=== PATIENT | female | born 1995 | race Caucasian/White ===

== ENCOUNTER 2016-12-12 01:12 | Emergency (ER) | payer OTHER ==
[2016-12-12 01:27] VITALS: TEMP 36.4
[2016-12-12] MEDS ORDERED: BCPILLS PO (01:41)
--- NOTE | 2016-12-12 01:47 | EMERGENCY ROOM VISIT NOTE ---
History Report prepared by Micky: Gisselle Hill Under the Supervision of: Dr. Mell Peraza D.O. First contact with patient: 01:16 Chief Complaint: ALCOHOL OVERDOSE Stated Complaint: ALCOHOL OVERDOSE History of Present Illness The patient is a 21 year old female who presents to the Emergency Room with complaints of an alcohol overdose that occurred prior to arrival. Per the patient's boyfriend, he was with the patient downtown drinking this evening. He states that the patient drank too much and he was walking the patient home when she suddenly had an asthma attack. The patient's boyfriend states that the patient did not have her albuterol inhaler on hand, so he called 911 for assistance. The patient notes a history of asthma. Nursing staff the patient vomited upon arrival to the emergency department. The patient denies any fall or trauma. 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 The history is limited secondary to intoxication. Source of History: patient, spouse/significant other History Limited By: intoxication Onset: prior to arrival Position: other (global) Quality: other (alcohol overdose) Associated Symptoms: + vomiting Note: Associated Symptoms: asthma attack Review of Systems HPI is limited secondary to intoxication. Past Medical & Surgical Medical Problems: (1) Asthma Family History Unobtainable secondary to intoxication Social History Alcohol Use: heavy Marital Status: in relationship Occupation Status: employed Current/Historical Medications Scheduled Control Pills ( Control Pills), 1 TAB PO DAILY Allergies Coded Allergies: Parsley (Verified Allergy, Mild, UNKNOWN, 12/12/16) Clindamycin (Verified Allergy, Unknown, UNKNOWN, 12/12/16) Physical Exam Vital Signs Date Time Temp Pulse Resp B/P Pulse Ox O2 Delivery O2 Flow Rate FiO2 12/12/16 07:00 90 16 81/49 97 Room Air 12/12/16 05:30 89 14 95 12/12/16 05:28 100/58 12/12/16 05:19 91 12/12/16 05:00 90 13 96 12/12/16 04:58 81/53 12/12/16 04:30 91 14 95 12/12/16 04:28 90/56 12/12/16 04:03 74 16 100/57 96 Room Air 12/12/16 04:00 82 13 96 12/12/16 03:34 105 16 93/51 98 Room Air 12/12/16 01:27 36.4 105 22 134/76 94 Room Air 12/12/16 01:22 103 Physical Exam General: Crying with vomit all through her hair. HEENT: Head - normocephalic and atraumatic Pupils are equal, round, and reactive to light. Extraocular eye muscles are intact, and sclera are anicteric. Nose - moist nasal mucosa without discharge. Mouth - moist buccal mucosa. Oropharynx is nonerythematous and there is no tonsillar exudate or edema noted. Neck: Supple; no JVD, nuchal rigidity, cervical lymphadenopathy. Heart: Regular rate and rhythm. There is a normal S1 and S2 with no murmurs, clicks, or gallops appreciated. Lungs: Clear to auscultation bilaterally with no wheezes, rales, or rhonchi. Abdomen: Soft, completely nontender, nondistended, with good bowel sounds. There are no palpable pulsatile masses or hepatosplenomegaly. There is no guarding, rigidity, or rebound noted. Extremities: No evidence of cyanosis, clubbing, or edema. There are easily palpable peripheral pulses. Skin: warm and dry with good turgor and no rashes. Medical Decision & Procedures Laboratory Results 12/12/16 01:28 Test 12/12/16 01:28 Anion Gap 13.0 mmol/L (3-11) Estimated GFR () 73.8 Estimated GFR (Non- 63.7 BUN/Creatinine Ratio 10.8 (10-20) Calcium Level 8.0 mg/dl (8.5-10.1) Ethyl Alcohol mg/dL 314.0 mg/dl (0-3) Laboratory results per my review. ED Course 0118: Past medical records reviewed. The patient was evaluated in room A9B. A complete history and physical exam was performed. The patient was placed in the prone position to avoid aspiration. She was observed on the medical data entry clerk and pulse oximeter. Laboratory studies were drawn as above. I discussed the case with the patient's boyfriend who is at the bedside. 0209: I reevaluated the patient and she is sleep and hemodynamically stable. 0218: I spoke with the patients boyfriend at this time to inform him that the patient would not be ready to leave till morning. He is going to go home and come back in a few hours. 0456: I reevaluated the patient and she is sleeping soundly and hemodynamically stable. 0630: The patient was easily able to wake up. I encouraged her to avoid such excessive alcohol use in the future. Her boyfriend will be picking her up shortly. Medical Decision The patient is a 21 year old female who presents to the ED with an alcohol overdose. Differential diagnosis includes asthma attack, alcohol overdose, drug intoxication, hypoglycemia, head injury Lab interpretation: Alcohol 314, potassium 3.3, glucose 110, normal renal functions This is a 21-year-old female patient who presents to the emergency department after drinking excessive amount of alcohol and then vomiting. The patient had an asthma attack prior to arrival here in the emergency department. She was fairly unresponsive on my physical exam. The boyfriend denies any other drug use besides alcohol. She rested comfortably here in the emergency department and remained hemodynamically stable until she was sober. The patient had no further respiratory complaints while here in the emergency department. Impression Primary Impression: Alcohol overdose Additional Impression: Asthma Scribe Attestation The scribe's documentation has been prepared under my direction and personally reviewed by me in its entirety. I confirm that the note above accurately reflects all work, treatment, procedures, and medical decision making performed by me. Departure Information Dispostion Home / Self-Care Referrals No Doctor, Assigned (PCP) Forms HOME CARE DOCUMENTATION FORM, IMPORTANT VISIT INFORMATION Patient Instructions ED Overdose Alcohol, My [facility] Additional Instructions Avoid such excessive alcohol use in the future Rest. Keep yourself well-hydrated since you were vomiting. Use tylenol for headaches Use inhaler for any further wheezing Problem Qualifiers
[2016-12-12 02:11] LABS: BLOOD UREA NITROGEN 13 mg/dl (7-18); BUN/CREATININE RATIO 10.8 (10-20); CARBON DIOXIDE 24 mmol/L (21-32); CHLORIDE 107 mmol/L (98-107); GLUCOSE 110 mg/dl (70-99); POTASSIUM 3.3 mmol/L (3.5-5.1); SODIUM 144 mmol/L (136-145)
[2016-12-12 07:00] VITALS: BP 81/49; PULSE 90; O2SAT 97
== END 2016-12-12 07:19 | disposition home or self-care (01) ==
LOC: EDBD 01:12 → C.EDA 01:15
DX: T51.0X1A Toxic effect of ethanol, accidental (unintentional), initial encounter (principal); J45.909 Unspecified asthma, uncomplicated

== ENCOUNTER 2023-04-08 05:25 | Inpatient (IN) ==
[2023-04-08] MEDS ORDERED: LIDOCAINE 1% LOCAL 20 ML VIAL INFIL PRN (06:08)
[2023-04-08] MEDS ORDERED: OXYTOCIN 30 UNITS/500 ML BAG IV PRN ×3 (06:08→19:26)
[2023-04-08] MEDS: LACTATED RINGER'S 1,000 ML IV PRN ×3 (06:30→15:28)
[2023-04-08] MEDS ORDERED: SODIUM CHLORIDE 0.9% PF INJ 10 ML VIAL ONE (06:43)
[2023-04-08] MEDS ORDERED: fentaNYL citrate PF 100 MCG/2 ML VIAL ONE (06:43)
[2023-04-08] MEDS ORDERED: BUPIVACAINE 0.25% PF 30 ML VIAL ONE (06:44)
[2023-04-08] MEDS ORDERED: fentaNYL 2MCG/ML ROPIVACAINE 1.25MG/ML 100 ML BAG EPI ONE (06:44)
[2023-04-08] MEDS ORDERED: LIDOCAINE 2%/EPINEPHRINE 1:200,000 20 ML PF ONE (06:44)
[2023-04-08] MEDS ORDERED: ePHEDrine sulfate 50 MG/ML AMP ONE (06:45)
[2023-04-08 07:01] LABS: Mean Corpuscular Hgb Conc 34.4 g/dL (32.0-36.0); Mean Corpuscular Volume 78.6 fL (80.0-100.0); Mean Platelet Volume 9.5 fL (9.4-12.4); Platelet Count 374 K/uL (130-400); RDW Standard Deviation 37.2 fL (36.4-46.3); Red Blood Count 4.07 M/uL (4.20-5.40); White Blood Count 18.83 K/ul (4.8-10.8)
--- NOTE | 2023-04-08 07:11 | Labor Progress Brief Note ---
Date of Service April 08, 2023 Subjective 27yo presents to L&D with contractions, no VB, good FM, and possible gush of fluid x1 when she vomited at home earlier (though this was likely urine per patient, as it has not continued to leak). GBS neg. 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 Assessment & Plan (1) Normal labor: Plan: Admit, epidural, exp mgmt. Admission and Anticipated Discharge Date Admission Date: April 08, 2023 Physical Exam Genitourinary: FHT Cat 1 [place] ~Q4 Cervix checked by RN on admission, 4-5cm No evident ROM yet Patient sitting semi-burton, FOB at bedside, and breathing/gripping bedrail through contraction during my visit while awaiting anesthesiologist. Results & Data Vital Signs (Past 12 Hours) Vital Signs Temp Pulse Resp BP 04/08/23 05:44 98.2 F 18 L 122/69 04/08/23 05:42 98.2 F 85 18 122/69 Coding Level of Care Code None Diagnoses Normal labor O80; Z37.9
--- NOTE | 2023-04-08 07:15 | Anesthesiology Consultation ---
Date of Service April 08, 2023 Assessment & Plan Chart Review Chart Review: Acceptable Risk for Labor Epidural Consults Requested none ASA ASA2 Proposed Anesthesia Anesthesia Type: Labor Epidural Risk / Benefits Reviewed With: PT / POA / Parent / Guardian, Accepts Plan and Informed Consent Obtained History Height/Weight Height: 5 ft 1 in Weight: 87.997 kg Allergies Allergy/AdvReac Type Severity Reaction Status Date / Time clindamycin Allergy Unknown Hives Verified 04/05/23 11:31 sulfamethoxazole Allergy Hives Verified 04/05/23 11:31 [From Bactrim] trimethoprim [From Bactrim] Allergy Hives Verified 04/05/23 11:31 Medications Home Medications Medication Instructions Recorded Confirmed Last Taken albuterol sulfate 90 mcg/actuation 2 puff inhalation Q6H PRN 03/21/19 04/08/23 Unknown aerosol inhaler BREATHING ISSUES prenat.vits,paty,umq-[id number]-wrkvv 1 tab PO DAILY 09/09/22 04/08/23 04/07/23 ondansetron HCl 4 mg tablet 4 mg PO Q6H PRN nausea and 10/20/22 04/08/23 Unknown vomiting #20 tabs ferrous sulfate 325 mg (65 mg 325 mg PO DAILY 04/08/23 04/08/23 04/07/23 iron) tablet (iron) omeprazole 20 mg capsule,delayed 20 mg 04/08/23 04/07/23 release Active Medications Generic Name Dose Route Start Last Admin Trade Name Freq PRN Reason Stop Dose Admin Lactated Ringer's 1,000 mls @ 125 mls/hr 04/08/23 06:08 04/08/23 06:30 Lr IV 04/10/23 06:07 999 mls/hr .Q8H PRN Administration L&D Protocol Protocol Past Medical History Medical History Acid reflux Asthma Exercise-induced asthma History of chicken pox Exercise / Class Metabolic Activity II 4-5 Yardwork/Stairs/Walk up hill Past Family History Family History Grandmother (Paternal) Family history of diabetes mellitus Breast cancer Aunt Cancer Grandmother (Paternal) Cancer Sister Breast cancer Denies family history of Ovarian cancer Colorectal cancer Past Surgical History Surgical History History of colposcopy Hx of colonoscopy Hx of lymph node excision BEHIND LEFT EAR Hx of wisdom tooth extraction S/P arthroscopy of right shoulder Past Anesthesia History No Hx of Anesthesia Complications and No Family Hx of Anesthesia Complications History of PONV No Hx of PONV and No Hx of Motion Sickness Social History Smoking Status: Never smoker Do You Dip or Chew Tobacco: No Hx Alcohol Use: Yes Alcohol type: wine alcohol intake frequency: a few times a month Hx Substance Use: No (USES CBD MASSAGE OIL) substance use type: does not use Physical Exam Vital Signs Last Vital Signs Temp 98.2 F 04/08/23 05:44 Pulse 18 L 04/08/23 05:44 Resp 18 04/08/23 05:42 BP 122/69 04/08/23 05:44 ENMT Mouth: no dentition abnormality Thyromental Distance: > or= 3.5 Finger Breadths Mallampati Class: II Neck normal visual inspection Respiratory normal respiratory effort Auscultation: lungs clear to auscultation bilaterally Cardiovascular Rate/Rhythm: regular rate and regular rhythm Testing Laboratory Results 04/08/23 06:34
[2023-04-08] MEDS ORDERED: BUPIVACAINE 0.25% PF 30 ML VIAL EPI STA (07:36)
[2023-04-08] MEDS ORDERED: ONDANSETRON INJ 2 MG/ML 2 ML VIAL IV PRN (07:36)
[2023-04-08] MEDS ORDERED: ePHEDrine sulfate 50 MG/ML AMP IV PRN (07:36)
[2023-04-08] MEDS ORDERED: diphenhydrAMINE 50 MG/ML VIAL IV PRN (07:36)
[2023-04-08] MEDS ORDERED: fentaNYL citrate PF 100 MCG/2 ML VIAL EPI PRN (07:36)
[2023-04-08] MEDS ORDERED: SODIUM CHLORIDE 0.9% PF INJ 10 ML VIAL EPI PRN (07:36)
[2023-04-08] MEDS ORDERED: SODIUM CHLORIDE 0.9% PF INJ 10 ML VIAL EPI STA (07:36)
[2023-04-08] MEDS ORDERED: LIDOCAINE 2% MPF LOCAL 5 ML VIAL EPI PRN (07:36)
[2023-04-08] MEDS ORDERED: NALOXONE HCL 1 MG in SODIUM CHLORIDE 0.9% 1000ML 1,000 ML IV PRN (07:36)
[2023-04-08] MEDS ORDERED: ROPIVACAINE 0.5% PF 5 MG/ML 20 ML VIAL EPI PRN (07:36)
[2023-04-08] MEDS ORDERED: NALBUPHINE HCL INJ 10 MG/ML AMP IV PRN (07:36)
[2023-04-08] MEDS ORDERED: fentaNYL 2MCG/ML ROPIVACAINE 1.25MG/ML 100 ML BAG EPI PRN (07:36)
[2023-04-08] MEDS ORDERED: LIDOCAINE 2%/EPINEPHRINE 1:200,000 20 ML PF EPI STA (07:36)
[2023-04-08] MEDS ORDERED: NALOXONE HCL 0.4 MG/1 ML VIAL/CARP IV PRN (07:36)
[2023-04-08] MEDS ORDERED: fentaNYL citrate PF 100 MCG/2 ML VIAL EPI STA (07:36)
[2023-04-08] MEDS ORDERED: BUPIVACAINE 0.25% PF 30 ML VIAL EPI PRN (07:36)
[2023-04-08] MEDS ORDERED: NURSING L&D Epidural Breakthrough Pain Update ONE (08:27)
[2023-04-08] MEDS ORDERED: bisacodyL 10 MG SUPP PR PRN (19:26)
[2023-04-08] MEDS ORDERED: ACETAMINOPHEN 325 MG TAB PO PRN (19:26)
[2023-04-08] MEDS ORDERED: oxyCODONE/ACETAMINOPHEN 5mg/325mg TAB PO PRN (19:26)
[2023-04-08] MEDS ORDERED: BENZOCAINE 20% AER SPR 82.5 GM CAN EXT PRN (19:26)
[2023-04-08] MEDS ORDERED: HYDROCORTISONE ACETATE 25 MG SUPP PR PRN (19:26)
[2023-04-08] MEDS ORDERED: DIPHTHERIA/TETANUS/PERTUSSIS Vaccine (Tdap, Age 7+yrs) 0.5mL SYR/VL IM ONE (19:26)
--- NOTE | 2023-04-08 20:16 | Delivery Summary ---
Vaginal Delivery Summary Date of Service April 08, 2023 Vaginal Delivery Summary VAVD and 2nd Degree LAC Patient is a 27-year-old G1, P0 female who presented at 38 weeks in active labor. Membranes ruptured spontaneously for clear fluid. She received epidural analgesia which was effective. She progressed to full dilation with Pitocin augmentation. She was making good progress when pushing, however after 2 hours there was minimal descent of the head past +2+3 station. There were moderate to severe variables with the contractions as well as tachycardia during the recovery after each deep variable. We discussed vacuum-assisted delivery and she accepted. After her bladder was emptied for a small amount of concentrated urine, the vacuum was placed on the head and through 2 contractions with 1 pop-off, the head was brought to the perineum. The [place] pump vacuum was then placed on the head and the infant was brought to . With minimal maternal effort the head delivered in L OP position which restituted to direct OP. A body cord was noted with delivery of the shoulders which was done without maternal effort. The rest of the delivered easily and was placed on the mother's abdomen for further attention and drying. Initially the infant was crying and moving all 4 limbs, but required further stimulation and oxygen on the baby bed. The cord been clamped and cut after 1 minute. After the cord blood was obtained, the placenta was expressed intact with a three-vessel cord. bleeding was controlled with dilute Pitocin and fundal massage. Second-degree perineal laceration was repaired with 3-0 chromic in the usual fashion. Estimated blood loss was 400 cc. Mother and infant were stable condition in the initial period. [facility] [place] Vaginal Delivery Charge Delivery Type Details: VAVD and 2nd Degree LAC
--- NOTE | 2023-04-08 20:45 | Anesthesia Procedure Note ---
Date of Service April 08, 2023 Anesthesia Post Epidural Note Vital Signs Vital Signs: Temp Pulse Resp BP Pulse Ox 98.6 F 69 20 108/56 L 99 04/08/23 19:19 04/08/23 20:32 04/08/23 19:19 04/08/23 20:32 04/08/23 19:19 Pain Intensity Abdomen: Pain Intensity: 0 Notes Mental Status: alert / awake / arousable and participated in evaluation Nausea / Vomiting: adequately controlled Pain: adequately controlled Airway Patency, RR, SpO2: stable & adequate BP & HR: stable & adequate Hydration State: stable & adequate Neuraxial Anesthesia: was administered and sensory block is resolving Anesthetic Complications: no major complications apparent and Pt Satisfied with anesthetic care Epidural: Removed without complications and With tip intact
[2023-04-08] MEDS: DOCUSATE SODIUM 100 MG CAP PO SCH (21:12)
[2023-04-08] MEDS: IBUPROFEN 600 MG TAB PO PRN (22:03)
--- NOTE | 2023-04-09 06:14 | Obstetrical Progress Note ---
Date of Service April 09, 2023 Assessment & Plan (1) Normal labor: (2) Supervision of normal first : Plan Lara is a 27 y/o female who is PPD #1 following VAVD at 38 weeks. -Meeting all milestones -Vital signs reviewed and WNL -O+/GBS negative/Rubella immune -Follow up in 6 weeks for appointment -Continue routine care Admission and Anticipated Discharge Date Admission Date: April 08, 2023 Supervising Physician Co-Signing Physician Notes Resident Physician Supervision Note: I interviewed and examined the patient. Discussed with Dr. Rice and agree with findings and plan as documented in the note. Any exceptions or clarifications are listed here: [None] Documented By: Bailey Moore MD, FACOG Subjective Lara is a 27 y/o female who is PPD #1 following VAVD at 38 weeks. She reports feeling well overall this morning. Notes abdominal cramping, pain 2/10 while resting and 4/10 with movement. Voiding without issue and endorses passing gas. Tolerating meals overnight and able to ambulate some. No significant change in vaginal bleeding overnight. Currently breast feeding. Review of Systems Constitutional: no fever, no chills and no sweats Respiratory: no cough, no dyspnea and no wheezing Cardiovascular: no chest pain, no palpitations and no calf pain Genitourinary: no dysuria Neurologic: no headache(s) Physical Exam Constitutional: WD/WN, vitals as above no acute distress Respiratory: no respiratory distress Auscultation: lungs clear to auscultation bilaterally; no rales, no rhonchi and no wheezes Cardiovascular: RRR, no murmur, no edema Extremities: no calf tenderness and no edema Negative Maite's sign bilaterally. Skin: no rashes, warm and dry Genitourinary: Uterine fundus firm, palpable below the umbilicus. Results & Data Vital Signs (Past 12 Hours) Vital Signs Temp Pulse Pulse Resp BP BP Pulse Ox 04/09/23 03:30 36.5 C 78 16 99/64 L 95 04/09/23 00:00 37.2 C 84 16 98/59 L 95 04/08/23 21:42 36.9 C 90 18 117/69 97 04/08/23 21:18 37.4 C 20 04/08/23 19:00 22 04/08/23 19:19 37.0 C 20 04/08/23 18:30 24 04/08/23 21:18 68 118/67 04/08/23 21:03 68 122/68 04/08/23 20:48 96 H 107/67 04/08/23 20:32 69 108/56 L 04/08/23 20:17 73 109/60 04/08/23 20:02 65 109/57 L 04/08/23 19:47 76 104/58 L 04/08/23 19:33 69 109/59 L 04/08/23 19:19 82 99 04/08/23 19:17 97 H 91/52 L 04/08/23 19:14 84 98 04/08/23 19:13 75 112/59 L 04/08/23 19:09 93 H 97 04/08/23 19:07 101 H 92 04/08/23 19:04 78 99 04/08/23 18:59 82 98 04/08/23 18:58 106 H 114/59 L 04/08/23 18:57 111 H 91 04/08/23 18:54 84 97 04/08/23 18:49 86 98 04/08/23 18:44 100 04/08/23 18:44 116 H 04/08/23 18:44 74 90 04/08/23 18:43 77 122/63 04/08/23 18:39 96 H 98 04/08/23 18:35 79 86 L 04/08/23 18:33 78 97 04/08/23 18:28 67 96 04/08/23 18:29 71 119/88 92 04/08/23 18:26 37.2 C 04/08/23 18:23 76 97 04/08/23 18:24 77 89 L 04/08/23 18:18 84 95 04/08/23 18:14 72 87 L 04/08/23 18:13 71 120/59 L 97 O2 Del Method 04/09/23 03:30 Room Air 04/09/23 00:00 Room Air 04/08/23 21:42 Room Air 04/08/23 21:18 04/08/23 19:00 04/08/23 19:19 04/08/23 18:30 04/08/23 21:18 04/08/23 21:03 04/08/23 20:48 04/08/23 20:32 04/08/23 20:17 04/08/23 20:02 04/08/23 19:47 04/08/23 19:33 04/08/23 19:19 04/08/23 19:17 04/08/23 19:14 04/08/23 19:13 04/08/23 19:09 04/08/23 19:07 04/08/23 19:04 04/08/23 18:59 04/08/23 18:58 04/08/23 18:57 04/08/23 18:54 04/08/23 18:49 04/08/23 18:44 04/08/23 18:44 04/08/23 18:44 04/08/23 18:43 04/08/23 18:39 04/08/23 18:35 04/08/23 18:33 04/08/23 18:28 04/08/23 18:29 04/08/23 18:26 04/08/23 18:23 04/08/23 18:24 04/08/23 18:18 04/08/23 18:14 04/08/23 18:13 Resident Activity Tracking Resident Involvement: Resident Care Provided Care Provided: OB Delivery
[2023-04-09] MEDS: PRENATAL VITAMIN 1 TAB PO SCH (07:30)
[2023-04-09] MEDS: DOCUSATE SODIUM 100 MG CAP PO SCH ×2 (07:31→20:38)
[2023-04-09] MEDS: IBUPROFEN 600 MG TAB PO PRN ×2 (07:31→18:28)
[2023-04-09 09:05] LABS: Hematocrit (blood only) 24.5 % (37.0-47.0); Hemoglobin 8.2 g/dl (12.0-16.0); Mean Corpuscular Hemoglobin 26.4 pg (25.0-34.0); Mean Corpuscular Hgb Conc 33.5 g/dL (32.0-36.0); Mean Corpuscular Volume 78.8 fL (80.0-100.0); Mean Platelet Volume 9.8 fL (9.4-12.4); Platelet Count 304 K/uL (130-400); RDW Coefficient of Variation 13.3 % (11.5-14.5); RDW Standard Deviation 37.9 fL (36.4-46.3); Red Blood Count 3.11 M/uL (4.20-5.40); White Blood Count 23.81 K/ul (4.8-10.8)
[2023-04-09] MEDS ORDERED: bisacodyL 5 MG TABEC PO SCH (20:00)
--- NOTE | 2023-04-10 05:55 | Obstetrical Progress Note ---
Date of Service April 10, 2023 Assessment & Plan (1) Normal labor: (2) Supervision of normal first : Plan Lara is a 27 y/o female who is PPD #2 following VAVD at 38 weeks. -Meeting all milestones -Vital signs reviewed and WNL -O+/GBS negative/Rubella immune -Follow up in 6 weeks for appointment -Continue routine care -Plan for d/c today Admission and Anticipated Discharge Date Admission Date: April 08, 2023 Supervising Physician Co-Signing Physician Notes Resident Physician Supervision Note: I interviewed and examined the patient. Discussed with Dr. Rice and agree with findings and plan as documented in the note. Any exceptions or clarifications are listed here: PP2 s/p , doing well. VSS, exam benign and wnl. Stable for d/c home Documented By: Camille Ramires MD Subjective Lara is a 27 y/o female who is PPD #2 following VAVD at 38 weeks. She reports feeling well overall this morning. Notes abdominal cramping that is managed on Motrin, pain does increase with some movement. Voiding without issue and endorses passing gas/also had a bowel movement. Tolerating meals overnight and able to ambulate some. Bleeding seems to be slowing down, denies any dizziness or lightheadedness with ambulation. Currently breast feeding. Review of Systems Constitutional: no fever, no chills and no sweats Respiratory: no cough, no dyspnea and no wheezing Cardiovascular: no chest pain, no palpitations and no calf pain Genitourinary: no dysuria Neurologic: no headache(s) Physical Exam Constitutional: WD/WN, vitals as above no acute distress Respiratory: no respiratory distress Auscultation: lungs clear to auscultation bilaterally; no rales, no rhonchi and no wheezes Cardiovascular: RRR, no murmur, no edema Extremities: no calf tenderness and no edema Gastrointestinal (Abdomen): Inspection/Auscultation: normal bowel sounds Skin: no rashes, warm and dry Genitourinary: Uterine fundus firm, palpable below umbilicus Results & Data Vital Signs (Past 12 Hours) Vital Signs Temp Pulse Resp BP Pulse Ox O2 Del Method 04/09/23 23:15 36.7 C 71 18 97/62 L 04/09/23 20:35 36.5 C 91 H 18 132/69 98 Room Air Resident Activity Tracking Resident Involvement: Resident Care Provided Care Provided: OB Delivery
[2023-04-10 07:00] LABS: Hematocrit (blood only) 25.8 % (37.0-47.0); Hemoglobin 8.5 g/dl (12.0-16.0)
[2023-04-10] MEDS: DOCUSATE SODIUM 100 MG CAP PO SCH (09:08)
[2023-04-10] MEDS: IBUPROFEN 600 MG TAB PO PRN (09:09)
[2023-04-10] MEDS: PRENATAL VITAMIN 1 TAB PO SCH (09:09)
[2023-04-10 10:00] VITALS: BP 109/72; PULSE 85; TEMP 97.9; O2SAT 99
== END 2023-04-10 13:00 | disposition home or self-care (01) | DRG 807 ==
LOC: OPB 05:25 → 4S1 05:30 → 4E2 21:56